=== PATIENT | male | born 1960 | race Caucasian/White ===

== ENCOUNTER 2022-04-29 09:21 | Inpatient (IN) ==
[2022-04-29 09:47] LABS: ABS Lymphocytes 0.9 10^3/ul (1.0-4.8); ABS Monocytes 0.4 10^3/ul (0-0.8); ABS Neutrophils 10.4 10^3/ul (1.5-7.7); Hematocrit 42 % (42-52); Hemoglobin 14.5 g/dL (14.0-18.0); Lymphocyte % 7.7 %; Mean Corpuscular HGB Conc 34 g/dL (31-36); Mean Corpuscular Hemoglobin 32 pg (27-31); Mean Corpuscular Volume 93 fL (80-94); Mean Platelet Volume 7.6 fL (7.4-10.4); Nucleated Red Blood Cells % 0.1; Platelet Count 162 10^3/uL (150-450); Red Blood Count 4.58 10^6 /uL (4.18-5.48); Red Cell Distribution Width 14 % (10-15); White Blood Count 11.7 10^3/uL (3.5-10.8)
[2022-04-29] MEDS ORDERED: Lactated Ringers 1000 ml BAG 1,000 ML IV ONE ×2 (09:53→11:54)
[2022-04-29 09:59] LABS: INR 1.56 (0.88-1.18)
[2022-04-29 10:45] LABS: Albumin 3.6 g/dL (3.2-5.2); Albumin/Globulin Ratio 1.3 (1-3); Calcium 8.5 mg/dL (8.6-10.3); Creatinine, Serum 1.21 mg/dL (0.67-1.17); Globulin 2.8 g/dL (2-4); Potassium 3.4 mmol/L (3.5-5.0); Total Bilirubin 0.9 mg/dL (0.2-1.0); Total Protein 6.4 g/dL (6.4-8.9); eGFR CKD-EPI 68.5 (>60)
[2022-04-29 11:32] LABS: High Sensitivity Troponin 1 Hr 25 pg/mL (<20)
[2022-04-29 11:47] LABS: C Reactive Protein 241.9 mg/L (<8.01)
[2022-04-29] MEDS ORDERED: cefTRIAXone 1 gm/50 mL D5W 1 GM/50 ML BAG IV ONE (11:52)
[2022-04-29] MEDS ORDERED: Azithromycin 500 mg/250 ml NS 500 MG/250 ML BAG IVPB ONE (11:52)
[2022-04-29 13:14] LABS: Urine Appearance Cloudy; Urine Bilirubin Negative (Negative); Urine Blood 1+ (Negative); Urine Color Amber; Urine Glucose Negative (Negative); Urine Ketones Negative (Negative); Urine Nitrite Negative (Negative); Urine Protein 2+(100 mg/dL) (Negative); Urine Specific Gravity 1.021 (1.002-1.030); Urine Urobilinogen Negative (Negative)
[2022-04-29] MEDS ORDERED: cefTRIAXone 1 gm/50 mL D5W 1 GM/50 ML BAG IV SCH (14:15)
[2022-04-29 14:41] LABS: Urine Bacteria Absent (Absent); Urine Red Blood Cell 1+(3-5/hpf) (Absent); Urine Squamous Epithelial Cell Present (Absent); Urine White Blood Cell Trace(0-5/hpf) (Absent)
[2022-04-29] MEDS: Enoxaparin 40 MG/0.4 ML SYR SUBCUT SCH (15:50)
[2022-04-29] MEDS ORDERED: Lactated Ringers 1000 ml BAG 1,000 ML IV SCH (16:00)
[2022-04-30 07:06] LABS: ABS Lymphocytes 0.8 10^3/ul (1.0-4.8); ABS Monocytes 0.2 10^3/ul (0-0.8); ABS Neutrophils 8.9 10^3/ul (1.5-7.7); Hematocrit 38 % (42-52); Hemoglobin 13.1 g/dL (14.0-18.0); Lymphocyte % 7.8 %; Mean Corpuscular HGB Conc 35 g/dL (31-36); Mean Corpuscular Hemoglobin 32 pg (27-31); Mean Corpuscular Volume 93 fL (80-94); Mean Platelet Volume 7.9 fL (7.4-10.4); Platelet Count 163 10^3/uL (150-450); Red Cell Distribution Width 14 % (10-15); White Blood Count 9.9 10^3/uL (3.5-10.8)
[2022-04-30 07:21] LABS: Calcium 8.1 mg/dL (8.6-10.3); Creatinine, Serum 1.02 mg/dL (0.67-1.17); Potassium 3.2 mmol/L (3.5-5.0); eGFR CKD-EPI 84.1 (>60)
[2022-04-30] MEDS ORDERED: Potassium Chlor 20 meq TAB.ER PO ONE ×2 (07:22→11:00)
[2022-04-30] MEDS ORDERED: Lisinopril/HCTZ 20/25 TAB (NF) PO SCH (09:00)
[2022-04-30] MEDS ORDERED: cefTRIAXone 1 gm/50 mL D5W 1 GM/50 ML BAG IV SCH (14:15)
[2022-04-30] MEDS ORDERED: Azithromycin 500 mg/250 ml NS 500 MG/250 ML BAG IVPB SCH (15:00)
[2022-04-30] MEDS: Enoxaparin 40 MG/0.4 ML SYR SUBCUT SCH (15:00)
[2022-05-01 06:50] LABS: ABS Lymphocytes 1.2 10^3/ul (1.0-4.8); ABS Monocytes 0.3 10^3/ul (0-0.8); ABS Neutrophils 7.7 10^3/ul (1.5-7.7); Eosinophil % 0.1 %; Hematocrit 40 % (42-52); Hemoglobin 13.7 g/dL (14.0-18.0); Lymphocyte % 12.6 %; Mean Corpuscular HGB Conc 35 g/dL (31-36); Mean Corpuscular Hemoglobin 32 pg (27-31); Mean Corpuscular Volume 93 fL (80-94); Mean Platelet Volume 7.4 fL (7.4-10.4); Platelet Count 171 10^3/uL (150-450); Red Blood Count 4.26 10^6 /uL (4.18-5.48); Red Cell Distribution Width 14 % (10-15); White Blood Count 9.2 10^3/uL (3.5-10.8)
[2022-05-01 07:25] LABS: Blood Urea Nitrogen 17 mg/dL (6-24); CO2 Carbon Dioxide 24 mmol/L (22-32); Calcium 7.9 mg/dL (8.6-10.3); Chloride 102 mmol/L (101-111); Creatinine, Serum 0.89 mg/dL (0.67-1.17); Glucose 102 mg/dL (70-100); Sodium 135 mmol/L (135-145); eGFR CKD-EPI 98.1 (>60)
[2022-05-01 07:32] LABS: Anion Gap 9 mmol/L (2-11)
[2022-05-01] MEDS ORDERED: Influenza vaccine *QUAD* *2022-23* 0.5 ML SYRINGE IM ONE (09:00)
[2022-05-01 09:01] LABS: Potassium 3.5 mmol/L (3.5-5.0)
[2022-05-01] MEDS ORDERED: Lactated Ringers 1000 ml BAG 1,000 ML IV ONE (10:01)
[2022-05-01] MEDS: Enoxaparin 40 MG/0.4 ML SYR SUBCUT SCH (15:42)
[2022-05-02 07:09] LABS: Calcium 7.8 mg/dL (8.6-10.3); Creatinine, Serum 0.78 mg/dL (0.67-1.17); Potassium 3.1 mmol/L (3.5-5.0); eGFR CKD-EPI 102.1 (>60)
[2022-05-02] MEDS ORDERED: Potassium Chlor 20 meq TAB.ER PO ONE ×2 (07:48→10:00)
[2022-05-02] MEDS: Enoxaparin 40 MG/0.4 ML SYR SUBCUT SCH (14:50)
[2022-05-02 15:57] LABS: C Reactive Protein 234.88 mg/L (<8.01)
[2022-05-03 07:11] LABS: Calcium 7.8 mg/dL (8.6-10.3); Creatinine, Serum 0.74 mg/dL (0.67-1.17); Potassium 3.6 mmol/L (3.5-5.0); eGFR CKD-EPI 103.7 (>60)
[2022-05-03] MEDS: Enoxaparin 40 MG/0.4 ML SYR SUBCUT SCH (15:58)
[2022-05-04 06:49] LABS: ABS Eosinophils 0.2 10^3/ul (0-0.6); ABS Lymphocytes 1.7 10^3/ul (1.0-4.8); ABS Monocytes 0.4 10^3/ul (0-0.8); Eosinophil % 2.4 %; Hematocrit 44 % (42-52); Hemoglobin 14.7 g/dL (14.0-18.0); Lymphocyte % 18.4 %; Mean Corpuscular HGB Conc 34 g/dL (31-36); Mean Corpuscular Hemoglobin 32 pg (27-31); Mean Corpuscular Volume 96 fL (80-94); Mean Platelet Volume 7.5 fL (7.4-10.4); Nucleated Red Blood Cells % 0.1; Platelet Count 323 10^3/uL (150-450); Red Blood Count 4.56 10^6 /uL (4.18-5.48); Red Cell Distribution Width 14 % (10-15); White Blood Count 9.3 10^3/uL (3.5-10.8)
[2022-05-04 07:02] LABS: C Reactive Protein 170.48 mg/L (<8.01); Calcium 8.1 mg/dL (8.6-10.3); Creatinine, Serum 0.75 mg/dL (0.67-1.17); Magnesium 2.1 mg/dL (1.9-2.7); Potassium 3.9 mmol/L (3.5-5.0); eGFR CKD-EPI 103.3 (>60)
[2022-05-04] MEDS ORDERED: Potassium Chlor 20 meq TAB.ER PO ONE (07:38)
[2022-05-04] MEDS: Enoxaparin 40 MG/0.4 ML SYR SUBCUT SCH (14:26)
[2022-05-05 07:27] LABS: Calcium 8.3 mg/dL (8.6-10.3); Creatinine, Serum 0.72 mg/dL (0.67-1.17); Magnesium 2.2 mg/dL (1.9-2.7); Potassium 4.3 mmol/L (3.5-5.0); eGFR CKD-EPI 104.6 (>60)
[2022-05-05 08:16] VITALS: BP 136/92
== END 2022-05-05 11:15 | disposition home or self-care (01) | DRG 720 ==
LOC: ED 09:21 → EDHOLD 13:58 → SUATTDRO 13:58 → INTOOBSV 13:58 → EDHOLD 23:27 → MEDTELE 23:58 → SUATTDRO 04-30 17:59
PROVIDERS: ADMIT Internal Medicine; ATTEND Internal Medicine

== ENCOUNTER 2023-11-27 12:33 | Inpatient (IN) ==
[2023-11-27 14:05] LABS: Urine Appearance Clear; Urine Bilirubin Negative (Negative); Urine Blood Negative (Negative); Urine Color Colorless; Urine Glucose Negative (Negative); Urine Ketones Negative (Negative); Urine Nitrite Negative (Negative); Urine Protein Negative (Negative); Urine Specific Gravity 1.008 (1.002-1.030); Urine Urobilinogen Negative (Negative)
[2023-11-27 17:07] LABS: ABS Basophils 0.1 10^3/uL (0.0-0.1); ABS Eosinophils 0.3 10^3/uL (0.0-0.5); ABS Lymphocytes 1.6 10^3/uL (1.0-4.8); ABS Monocytes 0.9 10^3/uL (0.0-1.1); ABS Neutrophils 6.1 10^3/uL (1.5-7.6); Eosinophil % 3.7 %; Hematocrit 36.1 % (38-53); Hemoglobin 12.2 g/dL (13.2-16.3); Lymphocyte % 17.5 %; Mean Corpuscular Hemoglobin 31.9 pg (27-33); Mean Corpuscular Hgb Conc 33.8 g/dL (31-36); Mean Corpuscular Volume 94.4 fL (80-97); Mean Platelet Volume 6.9 fL (7.5-11.2); Platelet Count 199 10^3/uL (150-450); Red Blood Count 3.82 10^6/uL (4.06-5.63); Red Cell Distribution Width 14.7 % (12-17)
[2023-11-27 17:41] LABS: Urine Appearance Clear; Urine Bilirubin Negative (Negative); Urine Blood Negative (Negative); Urine Color Colorless; Urine Glucose Negative (Negative); Urine Ketones Negative (Negative); Urine Nitrite Negative (Negative); Urine Protein Negative (Negative); Urine Specific Gravity 1.008 (1.002-1.030); Urine Urobilinogen Negative (Negative)
[2023-11-27 17:58] LABS: High Sensitivity Troponin 1 Hr 11 pg/mL (<20)
[2023-11-27 18:18] LABS: ALT 27 U/L (7-52); Albumin 4.2 g/dL (3.2-5.2); Albumin/Globulin Ratio 1.5 (1-3); Alkaline Phosphatase 50 U/L (35-149); Anion Gap 15 mmol/L (2-16); Blood Urea Nitrogen 69 mg/dL (6-24); CO2 Carbon Dioxide 25 mmol/L (22-32); Calcium 9.7 mg/dL (8.6-10.3); Chloride 103 mmol/L (101-111); Creatinine, Serum 3.04 mg/dL (0.67-1.17); Globulin 2.8 g/dL (2-4); Glucose 84 mg/dL (70-100); Sodium 143 mmol/L (135-145); Total Bilirubin 0.4 mg/dL (0.2-1.0); eGFR CKD-EPI 22.6 (>60)
[2023-11-27] MEDS: Lactated Ringers 1000 ml BAG 1,000 ML IV SCH (18:38)
[2023-11-27 18:42] LABS: Potassium, Whole Blood 3.8 mmol/L (3.4-4.5)
[2023-11-27] MEDS ORDERED: Al Hydrox/Mg Hydrox/Simet LIQ 30 ML UDC PO PRN (19:48)
[2023-11-27] MEDS: Morphine 4 MG/ML VIAL (1 ml) IV PRN (21:27)
[2023-11-27] MEDS: Lactated Ringers 1000 ml BAG 1,000 ML IV ONE (22:31)
[2023-11-27 23:20] LABS: Hematocrit 35.9 % (38-53); Hemoglobin 12.6 g/dL (13.2-16.3); Mean Corpuscular Hemoglobin 33.3 pg (27-33); Mean Corpuscular Hgb Conc 35.2 g/dL (31-36); Mean Corpuscular Volume 94.7 fL (80-97); Mean Platelet Volume 7.2 fL (7.5-11.2); Platelet Count 204 10^3/uL (150-450); Red Blood Count 3.79 10^6/uL (4.06-5.63); Red Cell Distribution Width 14.6 % (12-17)
[2023-11-28 00:12] LABS: Magnesium 1.7 mg/dL (1.9-2.7)
[2023-11-28] MEDS: Lactated Ringers 1000 ml BAG 1,000 ML IV SCH ×4 (00:46→19:38)
[2023-11-28 00:52] LABS: Calcium 9.9 mg/dL (8.6-10.3); Creatinine, Serum 2.69 mg/dL (0.67-1.17); Potassium 3.6 mmol/L (3.5-5.0); eGFR CKD-EPI 26.1 (>60)
[2023-11-28] MEDS: Magnesium Sulfate IV 1GM/100ML 1 GM/100 ML BAG IV ONE ×2 (02:41→11:39)
[2023-11-28 07:01] LABS: ABS Basophils 0.1 10^3/uL (0.0-0.1); ABS Eosinophils 0.3 10^3/uL (0.0-0.5); ABS Lymphocytes 1.6 10^3/uL (1.0-4.8); ABS Monocytes 0.7 10^3/uL (0.0-1.1); ABS Neutrophils 4.7 10^3/uL (1.5-7.6); Eosinophil % 3.6 %; Hematocrit 35.4 % (38-53); Hemoglobin 12.5 g/dL (13.2-16.3); Lymphocyte % 22.1 %; Mean Corpuscular Hemoglobin 33.3 pg (27-33); Mean Corpuscular Hgb Conc 35.3 g/dL (31-36); Mean Corpuscular Volume 94.3 fL (80-97); Mean Platelet Volume 7.4 fL (7.5-11.2); Platelet Count 200 10^3/uL (150-450); Red Blood Count 3.76 10^6/uL (4.06-5.63); Red Cell Distribution Width 14.6 % (12-17); White Blood Count 7.4 10^3/uL (3.6-10.2)
[2023-11-28] MEDS: Cholecalciferol (VIT D3) 1,000 unit TAB PO SCH (08:22)
[2023-11-28] MEDS: Aspirin EC 81 mg TAB.EC (enteric coated) PO SCH (08:22)
[2023-11-28 08:25] LABS: Calcium 8.7 mg/dL (8.6-10.3); Creatinine, Serum 2.06 mg/dL (0.67-1.17); Magnesium 1.5 mg/dL (1.9-2.7); Potassium 3.3 mmol/L (3.5-5.0)
[2023-11-28] MEDS: Magnesium Sulfate 2 gm BAG 2 GM/50 ML BAG IVPB ONE (10:23)
[2023-11-28] MEDS: Potassium Chlor 20 meq TAB.ER PO SCH (10:24)
[2023-11-28] MEDS: Potassium Chlor 20 meq TAB.ER PO ONE ×2 (11:39→19:39)
[2023-11-28] MEDS ORDERED: Morphine 4 MG/ML VIAL (1 ml) IV PRN (14:20)
[2023-11-28 18:41] LABS: Calcium 9.7 mg/dL (8.6-10.3); Creatinine, Serum 1.99 mg/dL (0.67-1.17); Potassium 3.6 mmol/L (3.5-5.0); eGFR CKD-EPI 37.5 (>60)
[2023-11-29 05:54] LABS: ABS Eosinophils 0.2 10^3/uL (0.0-0.5); ABS Lymphocytes 1.7 10^3/uL (1.0-4.8); ABS Monocytes 0.7 10^3/uL (0.0-1.1); ABS Neutrophils 5.3 10^3/uL (1.5-7.6); Eosinophil % 2.9 %; Hematocrit 34.4 % (38-53); Hemoglobin 12.2 g/dL (13.2-16.3); Lymphocyte % 21.3 %; Mean Corpuscular Hemoglobin 33.3 pg (27-33); Mean Corpuscular Hgb Conc 35.5 g/dL (31-36); Mean Corpuscular Volume 93.8 fL (80-97); Mean Platelet Volume 7.1 fL (7.5-11.2); Platelet Count 176 10^3/uL (150-450); Red Blood Count 3.66 10^6/uL (4.06-5.63); Red Cell Distribution Width 14.5 % (12-17); White Blood Count 7.9 10^3/uL (3.6-10.2)
[2023-11-29 06:27] LABS: Calcium 9.1 mg/dL (8.6-10.3); Creatinine, Serum 1.84 mg/dL (0.67-1.17); Magnesium 1.6 mg/dL (1.9-2.7); Potassium 3.3 mmol/L (3.5-5.0); eGFR CKD-EPI 41.2 (>60)
[2023-11-29] MEDS ORDERED: NS 0.9% 1000 ml BAG 800 ML IV SCH (07:30)
[2023-11-29] MEDS: NS 0.9% 1000 ml BAG 800 ML IV ONE (08:54)
[2023-11-29] MEDS: Magnesium Sulfate 2 gm BAG 2 GM/50 ML BAG IVPB ONE (08:57)
[2023-11-29] MEDS: Potassium Chlor 20 meq TAB.ER PO ONE (08:58)
[2023-11-29] MEDS: Magnesium Sulfate IV 1GM/100ML 1 GM/100 ML BAG IV ONE (10:16)
[2023-11-30 06:02] LABS: Calcium 8.5 mg/dL (8.6-10.3); Magnesium 1.7 mg/dL (1.9-2.7); Potassium 3.4 mmol/L (3.5-5.0)
[2023-11-30 07:14] LABS: Creatinine, Serum 1.62 mg/dL (0.67-1.17)
[2023-12-01 06:28] LABS: ABS Basophils 0.1 10^3/uL (0.0-0.1); ABS Eosinophils 0.4 10^3/uL (0.0-0.5); ABS Monocytes 0.7 10^3/uL (0.0-1.1); ABS Neutrophils 3.1 10^3/uL (1.5-7.6); Eosinophil % 6.7 %; Hematocrit 32.9 % (38-53); Hemoglobin 11.7 g/dL (13.2-16.3); Lymphocyte % 31.7 %; Mean Corpuscular Hgb Conc 35.5 g/dL (31-36); Platelet Count 175 10^3/uL (150-450); Red Blood Count 3.54 10^6/uL (4.06-5.63); White Blood Count 6.2 10^3/uL (3.6-10.2)
[2023-12-01 07:20] LABS: C Reactive Protein 8.15 mg/L (<8.01); Creatinine, Serum 1.4 mg/dL (0.67-1.17); Potassium 3.5 mmol/L (3.5-5.0); eGFR CKD-EPI 57.2 (>60)
[2023-12-01] MEDS: Lactated Ringers 1000 ml BAG 1,000 ML IV ONE (08:29)
[2023-12-01] MEDS: Potassium Chlor 20 meq TAB.ER PO ONE (08:30)
[2023-12-01 08:31] LABS: Magnesium 1.6 mg/dL (1.9-2.7)
[2023-12-01] MEDS: Magnesium Sulfate 2 gm BAG 2 GM/50 ML BAG IVPB ONE (10:46)
[2023-12-01] MEDS: Magnesium Sulfate IV 1GM/100ML 1 GM/100 ML BAG IV ONE (12:18)
[2023-12-02 05:51] LABS: ABS Eosinophils 0.4 10^3/uL (0.0-0.5); ABS Lymphocytes 1.9 10^3/uL (1.0-4.8); ABS Monocytes 0.6 10^3/uL (0.0-1.1); ABS Neutrophils 3.6 10^3/uL (1.5-7.6); ABS Nucleated RBC 0.01 10^3/ul; Eosinophil % 6.7 %; Hematocrit 31.5 % (38-53); Hemoglobin 11.2 g/dL (13.2-16.3); Lymphocyte % 29.1 %; Mean Corpuscular Hemoglobin 33.5 pg (27-33); Mean Corpuscular Hgb Conc 35.7 g/dL (31-36); Mean Corpuscular Volume 93.9 fL (80-97); Mean Platelet Volume 6.9 fL (7.5-11.2); Nucleated Red Blood Cells % 0.1 %/100WBC (0.0-0.8); Platelet Count 177 10^3/uL (150-450); Red Blood Count 3.35 10^6/uL (4.06-5.63); Red Cell Distribution Width 13.8 % (12-17); White Blood Count 6.6 10^3/uL (3.6-10.2)
[2023-12-02 06:24] LABS: Calcium 8.6 mg/dL (8.6-10.3); Creatinine, Serum 1.39 mg/dL (0.67-1.17); Magnesium 1.9 mg/dL (1.9-2.7); Potassium 3.5 mmol/L (3.5-5.0); eGFR CKD-EPI 57.7 (>60)
[2023-12-02] MEDS: Gadoteridol (CONTRAST) 279.3 MG/ML 10 ML IV ONE (09:17)
[2023-12-02] MEDS: Potassium Chlor 20 meq TAB.ER PO ONE (09:18)
[2023-12-02 14:15] VITALS: BP 135/90
== END 2023-12-02 15:25 | disposition home or self-care (01) | DRG 469 ==
LOC: ED 12:33 → EDHOLD 12:33 → SUATTDRO 19:48 → INTOOBSV 19:48 → OBSVTOIN 19:48 → MEDTELE 11-28 11:38
PROVIDERS: ADMIT Internal Medicine; ATTEND Hospitalist